=== PATIENT | male | born 1970 | race African-American/Black ===

== ENCOUNTER 2017-06-07 11:20 | Emergency (ER) | payer SELFPAY ==
[~2017-06-07] VITALS: Ht 175.3 cm; Wt 75.0 kg
[~2017-06-07 11:20] MED LIST: ALL220TA PO; NAPR500 PO; PENI500T PO
[2017-06-07 11:33] VITALS: BP 151/77; PULSE 88; RESP 18; TEMP 98.3; O2SAT 99
--- NOTE | 2017-06-07 13:47 | PD ---
HPI Chief Complaint: Eye Problems/Injury Time Seen by Provider: 13:46 Travel History International Travel<30 days: No Contact w/Intl Traveler<30days: No Traveled to known affect area: No History of Present Illness HPI 46-year-old male presents emergency department for evaluation of left eye irritation that began 2 days ago. He woke up this morning it was crusted shut. Denies any pain. No visual disturbances. States the eyes mostly itching. He denies any trauma. He has no other symptoms to report. PFSH Past Medical History Medical History: Denies Significant Hx Hx Anticoagulant Therapy: No Cardiovascular Problems: No Chemotherapy: No Cerebrovascular Accident: No Diabetes: No Respiratory: No Social History Tobacco Use: No Allergies-Medications (Allergen,Severity, Reaction): Coded Allergies: No Known Allergies (Verified Adverse Reaction, Unknown, 06/07/17) Reported Meds & Prescriptions Reported Meds & Active Scripts Active Polytrim Opth Drops (Polymyxin/Trimethoprim Sulfate) 10,000-0.1 Unit/Ml-% Soln 1 Drop EACH EYE Q6HR Review of Systems Except as stated in HPI: all other systems reviewed are Neg Physical Exam Narrative GENERAL: Well-nourished, well-developed male patient in no acute distress. SKIN: Focused skin assessment warm/dry. HEAD: Normocephalic. No tenderness elicited palpation over the sinuses. EYES: No scleral icterus. EOMI. Injection of the left sclera. Mild crusting along the lash line. Pupils are equal and reactive. No foreign body identified. No increased uptake on fluorescein examination. NECK: Supple, trachea midline. No JVD or lymphadenopathy. CARDIOVASCULAR: Regular rate and rhythm without murmurs, gallops, or rubs. RESPIRATORY: Breath sounds equal bilaterally. No accessory muscle use. Data Data Last Documented VS Vital Signs Date Time Temp Pulse Resp B/P (MAP) Pulse Ox O2 Delivery O2 Flow Rate FiO2 06/07/17 14:20 97.8 78 16 108/77 (87) 99 Orders Orders Ed Discharge Order (06/07/17 14:00) [facility] Medical Decision Making Medical Screen Exam Complete: Yes Emergency Medical Condition: Yes Medical Record Reviewed: Yes Differential Diagnosis Conjunctivitis versus keratitis versus iritis versus foreign body versus corneal abrasion Narrative Course 46-year-old male presents to the emergency department for evaluation of left eye irritation. Physical exam is consistent with conjunctivitis. Patient will be treated for this. He is encouraged to follow-up with primary care provider and return immediately with any acute worsening symptoms. Diagnosis Primary Impression: Conjunctivitis, left eye Qualified Codes: H10.32 - Unspecified acute conjunctivitis, left eye Referrals: Dope Pourer Patient Instructions: Conjunctivitis (ED), General Instructions Additional Instructions: Warm compresses to help remove crusts Cool compresses to reduce irritation Do not rub eyes Return to ED with acute worsening of symptoms Med/Other Pt SpecificInfo: Prescription(s) given Scripts Polymyxin B-Trimethoprim Opth Drops (Polytrim Opth Drops) 10,000-0.1 Unit/Ml-% Soln 1 DROP EACH EYE Q6HR for Mgmt Bacterial Infection, #1 BOTTLE 0 Refills Prov: Faby Zuluaga 06/07/17 Disposition: 01 DISCHARGE HOME Condition: Stable Faby Zuluaga Jun 07, 2017 13:47
[2017-06-07] MEDS ORDERED: POLY10O EACH EYE (14:09)
[2017-06-07 14:20] VITALS: BP 108/77; TEMP 97.8
== END 2017-06-07 14:20 | disposition home or self-care (01) ==
LOC: NEPD 11:20
DX: H10.32 Unspecified acute conjunctivitis, left eye (principal)
CPT/HCPCS: 99283